=== PATIENT | female | born 1975 | race African-American/Black ===

== ENCOUNTER 2017-01-12 18:49 | Emergency (ER) | payer BC ==
[2017-01-12] MEDS ORDERED: ACETAMINOPHEN 325 MG TABLET PO ONE (19:06)
--- NOTE | 2017-01-12 19:06 | ER Document Report ---
ED Medical Screen (RME) - General Stated Complaint: HIGH BLOOD PRESSURE,HEADACHE Mode of Arrival: Ambulatory Information source: Patient Notes: c/o frontal headache that started yesterday. She states she had her BP checked at [facility] prior to coming and it was 146/97 and 141/95. At work earlier today it was also 143/106, HR 104. She has no prior history of HTN, does not take any blood pressure medication. Endorses associated blurred vision but denies dizziness, chest pain, SOB. I have greeted and performed a rapid initial assessment of this patient. A comprehensive ED assessment and evaluation of the patient, analysis of test results and completion of the medical decision making process will be conducted by additional ED providers. TRAVEL OUTSIDE OF THE [place] IN LAST 30 DAYS: No - Related Data Allergies/Adverse Reactions: No Known Allergies Allergy (Verified 04/20/14 08:04) Past Medical History - Past Medical History Cardiac Medical History: Reports: Hx Hypertension Pulmonary Medical History: Denies: Hx Tuberculosis Neurological Medical History: Reports: Hx Migraine Past Surgical History: Denies: Hx Pacemaker - Immunizations Immunizations up to date: Yes Hx Diphtheria, Pertussis, Tetanus Vaccination: Yes Physical Exam - Vital signs Vitals: Temp Pulse Resp BP Pulse Ox 97.5 F 92 16 137/87 H 99 01/12/17 18:56 01/12/17 18:56 01/12/17 18:56 01/12/17 18:56 01/12/17 18:56 Course - Vital Signs Vital signs: Temp Pulse Resp BP Pulse Ox 97.5 F 92 16 137/87 H 99 01/12/17 18:56 01/12/17 18:56 01/12/17 18:56 01/12/17 18:56 01/12/17 18:56
[2017-01-12 19:40] LABS: APPEARANCE,URINE SLIGHTLY-CLOUDY; BILIRUBIN,URINE NEGATIVE (NEGATIVE); GLUCOSE, URINE NEGATIVE (NEGATIVE); KETONES,URINE NEGATIVE (NEGATIVE); LEUKOCYTE ESTERASE,URINE TRACE (NEGATIVE); NITRITE,URINE NEGATIVE (NEGATIVE); PROTEIN,URINE NEGATIVE (NEGATIVE); URINE SPECIFIC GRAVITY 1.012; UROBILINOGEN,URINE NEGATIVE mg/dL (<2.0)
[2017-01-12] MEDS ORDERED: DIPHENHYDRAMINE HCL 25 MG CAPSULE PO ONE (21:30)
[2017-01-12] MEDS ORDERED: METOCLOPRAMIDE HCL 10 MG TABLET PO ONE (21:30)
--- NOTE | 2017-01-12 23:13 | ER Document Report ---
HPI - HPI Patient complains to provider of: headache high blood pressure Onset: Yesterday Onset/Duration: Persistent Quality of pain: Achy Severity: Severe Pain Level: 4 Context: Patient presents to the emergency department with complaints of headache high blood pressure. She reports she felt like it was elevated this morning. She did her errands and then took her bp at [facility]. She reports history of high blood pressure. She reports she is under no treatment at this time. She denies other symptoms like chest pain shortness of breath. She denies fever vomiting diarrhea. Associated Symptoms: None, Headache. denies: Nausea, Vomiting, Shortness of breath Exacerbated by: Denies Relieved by: Denies Similar symptoms previously: Yes Recently seen / treated by doctor: No - CARDIOVASCULAR Cardiovascular: DENIES: Chest pain - REPRODUCTIVE LMP: [id number] Reproductive: DENIES: : - DERM Skin Color: Normal Past Medical History - General Information source: Patient Last Menstrual Period: last month - Social History Smoking Status: Current Every Day Smoker Cigarette use (# per day): Yes - [id number] Chew tobacco use (# tins/day): No Frequency of alcohol use: None Drug Abuse: None Occupation: 2 jobs Lives with: Family Family History: Reviewed & Not Pertinent Patient has suicidal ideation: No Patient has homicidal ideation: No - Past Medical History Cardiac Medical History: Reports: Hx Hypertension Pulmonary Medical History: Denies: Hx Tuberculosis Neurological Medical History: Reports: Hx Migraine Renal/ Medical History: Denies: Hx Peritoneal Dialysis Surgical Hx: Negative Past Surgical History: Denies: Hx Pacemaker - Immunizations Immunizations up to date: Yes Hx Diphtheria, Pertussis, Tetanus Vaccination: Yes Vertical Provider Document - CONSTITUTIONAL Agree With Documented VS: Yes Exam Limitations: No Limitations General Appearance: WD/WN, No Apparent Distress - Nontoxic looking - INFECTION CONTROL TRAVEL OUTSIDE OF THE [place] IN LAST 30 DAYS: No - HEENT HEENT: Atraumatic, Normal ENT Exam, Normocephalic, PERRLA. negative: Conjuctival Injection, Pharyngeal Exudate, Pharyngeal Tenderness, Pharyngeal Erythema, Tympanic Membrane Red, Tympanic Membrane Bulging - NECK Neck: Normal Inspection, Supple. negative: Lymphadenopathy-Left, Lymphadenopathy-Right - RESPIRATORY Respiratory: Breath Sounds Normal, No Respiratory Distress, Chest Non-Tender O2 Sat by Pulse Oximetry: 98 - CARDIOVASCULAR Cardiovascular: Regular Rate, Regular Rhythm - GI/ABDOMEN Gastrointestinal: Abdomen Soft, Abdomen Non-Tender - BACK Back: Normal Inspection - MUSCULOSKELETAL/EXTREMETIES Musculoskeletal/Extremeties: MAEW, FROM, Non-Tender - NEURO Level of Consciousness: Awake, Alert, Appropriate Motor/Sensory: No Motor Deficit - DERM Integumentary: Warm, Dry, No Rash Course - Re-evaluation Re-evalutation: 01/12/17 Patient looks good. Patient reports she's had recent increased stress in her life. She works 2 jobs. Patient also reports that she was so stressed this morning she smoked a pack a cigarette within the morning. Patient denies chest pain shortness of breath. Patient was instructed on the importance of quitting smoking. Patient was also instructed on ways to control high blood pressure. She verbalized understanding. She was also instructed on the importance of follow-up with the family care provider for further evaluation and physical. 01/12/17 23:14 Patient reports her headache is almost gone. - Vital Signs Vital signs: Temp Pulse Resp BP Pulse Ox 98.1 F 86 15 114/71 98 01/12/17 22:34 01/12/17 22:34 01/12/17 22:34 01/12/17 22:34 01/12/17 22:34 - Laboratory Laboratory results interpreted by me: 01/12/17 19:10 Urine Blood SMALL H Ur Leukocyte Esterase TRACE H Discharge - Discharge Clinical Impression: Headache, elevated blood pressure reading Condition: Stable Disposition: HOME, SELF-CARE Instructions: Antinausea Medication ([facility]), Headache ([facility]), Use of Diphenhydramine, Reglan ([facility]), Family Physicians / Practices Additional Instructions: *You have been evaluated for headache, elevated blood pressure *Quit smoking *Take benadryl as indicated for LOPEZ *Monitor your blood pressure follow-up with primary care provider *Follow up with a primary care provider within one week *Return to ED for worsening condition, changes, needs Forms: Elevated Blood Pressure, Smoking Cessation Education, Return to Work
[2017-01-12 23:39] VITALS: BP 127/77
== END 2017-01-12 23:38 | disposition home or self-care (01) ==
LOC: ER 18:49
DX: I10 Essential (primary) hypertension (principal); R51 Headache; F17.210 Nicotine dependence, cigarettes, uncomplicated; F43.9 Reaction to severe stress, unspecified
CPT/HCPCS: 81001; 99284

== ENCOUNTER 2018-03-28 17:05 | Emergency (ER) | payer BC ==
[2018-03-28] MEDS ORDERED: IPRATROPIUM/ALBUTEROL 0.5-2.5 MG/3 ML AMPUL NEB ONE (17:33)
--- NOTE | 2018-03-28 17:36 | ER Document Report ---
ED Respiratory Problem - General Chief Complaint: Chest Congestion Stated Complaint: COUGH Time Seen by Provider: 03/28/18 17:23 Mode of Arrival: Ambulatory Information source: Patient TRAVEL OUTSIDE OF THE [place] IN LAST 30 DAYS: No - HPI Patient complains to provider of: Cough Notes: Patient is here with complaints of cough for approximately 1 week now. She states that she had a fever through Monday but does not believe she has had a fever since that time. She is a smoker. She denies any chronic lung conditions. States that now she has some pain in her chest only if she coughs. She denies any shortness of breath. She denies any recent long trips or surgeries, leg pain or swelling, hormone use, history of DVT or PE, cancer. Patient is a smoker. She also states that when she woke up this morning she noticed that her left hip was somewhat sore. She denies any traumatic injury or fall. She denies any numbness, tingling, weakness. Also complains of a "knot" in her left side that she noticed this morning as well. No redness or swelling. Nothing seems to make her symptoms better. Her pain in her chest as well as the "knot" in her abdomen is worse if she coughs. No other complaints at this time. - Related Data Allergies/Adverse Reactions: No Known Allergies Allergy (Verified 03/28/18 17:39) Past Medical History - Social History Smoking Status: Current Every Day Smoker Family History: Reviewed & Not Pertinent - Past Medical History Cardiac Medical History: Reports: Hx Hypertension Pulmonary Medical History: Denies: Hx Tuberculosis Neurological Medical History: Reports: Hx Migraine Renal/ Medical History: Denies: Hx Peritoneal Dialysis Past Surgical History: Denies: Hx Pacemaker - Immunizations Immunizations up to date: Yes Hx Diphtheria, Pertussis, Tetanus Vaccination: Yes Review of Systems - Review of Systems -: Yes All other systems reviewed and negative Physical Exam - Vital signs Vitals: Temp Pulse Resp BP Pulse Ox 97.7 F 87 20 147/82 H 99 03/28/18 17:13 03/28/18 17:13 03/28/18 17:13 03/28/18 17:13 03/28/18 17:13 - Notes Notes: GENERAL: alert, cooperative, nontoxic, no distress. HEAD: normocephalic, atraumatic EYES: conjunctiva pink without discharge, no external redness or swelling. EARS: no external swelling, no external redness, no mastoid redness, swelling, tenderness. Ear canals are clear without swelling or drainage. TMs pearly zamudio , no redness, no bulging, normal landmarks, no perforation. NOSE: atraumatic, no external swelling. clear rhinorrhea noted. MOUTH/THROAT: mucous membranes moist and pink, posterior pharynx without erythema, swelling, exudate. No trismus or drooling. NECK: soft, supple, full range of motion, no meningismus. CHEST: no distress, lungs clear and equal throughout. Scattered wheezes expiratory throughout. No crackles. Fair air movement. CARDIAC: regular rate and rhythm, no murmur, normal capillary refill, normal pulses. No peripheral edema noted. BACK: full range of motion, no CVA tenderness. ABDO: Obese abdomen. Soft and nontender. I am unable to palpate any mass in the area where she feels her "knot". No redness or signs of abscess. No rebound tenderness or guarding. EXTREMITIES: full range of motion of all extremities. No redness, no swelling. Minimal tenderness to palpation of the left iliac crest. Full range of motion of the hip. No joint swelling. Normal pulse and sensation distally. NEURO: alert and oriented A&O3, no focal deficits, full range of motion of all extremities. PYSCH: appropriate mood, affect. Patient is cooperative. SKIN: pink, warm, dry, no rash. Course - Re-evaluation Re-evalutation: 03/28/18 18:34 Patient is nontoxic appearing with stable vitals. She is here with complaints of cough as well as some left hip pain. She is a smoker. She had fever at the onset of illness that has since resolved. She is afebrile here and is not hypoxic or tachypneic. She was noted to have some expiratory wheezes on exam. She was given breathing treatments which improved her breath sounds. Chest x- ray shows no acute abnormality per the radiologist. Patient some mild tenderness to palpation at the left iliac crest. No injury. The left hip joint itself is unremarkable. Patient will be discharged home with a prescription for prednisone, albuterol inhaler with spacer, Naprosyn. Follow- up with her doctor if not better in 1 week, sooner for worsening pain, fever, numbness, tingling, weakness, difficulty breathing, or for any further concerns. The patient is noted to have elevated blood pressure during today's emergency department visit. The patient was informed of this finding. The patient was instructed that this may be related to pre-hypertension and requires further evaluation with a primary care provider. The patient has no hypertensive symptoms at this time. The patient's emergency department workup and current diagnosis were explained to the patient and or family. Follow-up instructions were provided. Medications if prescribed were discussed. Instructions for when to return to the emergency department including specific worrisome symptoms were discussed with the patient and/or family. - Vital Signs Vital signs: Temp Pulse Resp BP Pulse Ox 97.7 F 87 20 147/82 H 99 03/28/18 17:13 03/28/18 17:13 03/28/18 17:13 03/28/18 17:13 03/28/18 17:13 - Diagnostic Test Radiology reviewed: Image reviewed, Reports reviewed - Negative chest x-ray Discharge - Discharge Clinical Impression: Bronchitis, Left hip pain Condition: Stable Disposition: HOME, SELF-CARE Instructions: Bronchitis ([facility]) Additional Instructions: Take medication as prescribed. Follow-up with your doctor at the next available appointment. Follow-up sooner for worsening symptoms, high fever, persistent vomiting, difficulty breathing, redness or swelling to the left hip, or for any further concerns. Your blood pressure was elevated during today's visit. Have this rechecked with your doctor. Prescriptions: Albuterol Sulfate [Proair HFA Inhalation Aerosol 8.5 gm MDI] 2 puff IH Q4H PRN # 1 mdi PRN Reason: Inhaler, Assist Devices [Space Chamber Plus] 1 each MC PRN PRN #1 spacer PRN Reason: Naproxen [Naprosyn] 500 mg PO BID #20 tablet Prednisone [Deltasone 20 mg Tablet] 3 tab PO DAILY 5 Days tablet Forms: Elevated Blood Pressure, Smoking Cessation Education Referrals: [facility] [Provider Group] - Follow up as needed
--- NOTE | 2018-03-28 17:47 | RADIOLOGY REPORT (SQ) ---
EXAM DESCRIPTION: CHEST 2 VIEWS COMPLETED DATE/TIME: 03/28/2018 5:40 pm REASON FOR STUDY: cough, pain with cough COMPARISON: 04/13/2012. EXAM PARAMETERS: NUMBER OF VIEWS: two views TECHNIQUE: Digital Frontal and Lateral radiographic views of the chest acquired. RADIATION DOSE: NA LIMITATIONS: none FINDINGS: LUNGS AND PLEURA: No opacities, masses or pneumothorax. No pleural effusion. MEDIASTINUM AND HILAR STRUCTURES: No masses or contour abnormalities. HEART AND VASCULAR STRUCTURES: Heart normal size. No evidence for failure. BONES: No acute findings. HARDWARE: None in the chest. OTHER: No other significant finding. IMPRESSION: NO ACUTE RADIOGRAPHIC FINDING IN THE CHEST. TECHNICAL DOCUMENTATION: JOB ID: [id number] [email or web address]- All Rights Reserved Reading location - IP/workstation name: [email or web address]
[2018-03-28 19:11] VITALS: BP 119/74
== END 2018-03-28 19:14 | disposition home or self-care (01) ==
LOC: ER 17:05
DX: J40 Bronchitis, not specified as acute or chronic (principal); M25.552 Pain in left hip; R09.89 Other specified symptoms and signs involving the circulatory and respiratory systems; R05 Cough; R50.9 Fever, unspecified; F17.200 Nicotine dependence, unspecified, uncomplicated; I10 Essential (primary) hypertension
CPT/HCPCS: 94640; 99283; 71046; J7620

== ENCOUNTER → 2020-06-22 | Outpatient (CLI) | payer BC ==
--- NOTE | 2020-06-23 08:56 | WOMENS IMAGING REPORT ---
EXAM DESCRIPTION: BILAT SCREENING MAMMO W/CAD IMAGES COMPLETED DATE/TIME: 06/22/2020 4:08 pm REASON FOR STUDY: Z12.31 ENCNTR SCREEN MAMMOGRAM FOR MALIGNANT NEOPLASM OF BREAST Z12.31 ENCNTR SCR EEN MAMMOGRAM FOR MALIGNANT NEOPLASM OF LISA COMPARISON: None. EXAM PARAMETERS: Standard craniocaudal and mediolateral oblique views of each breast recorded using digital acquisition. Read with the assistance of CAD. .[facility] - [employer] Director Sales And Marketing Version 9.2 LIMITATIONS: None. FINDINGS: No suspicious masses, suspicious calcifications or architectural distortion. No areas of c oncern. IMPRESSION: NEGATIVE MAMMOGRAM. BIRADS 1 BREAST DENSITY: b. There are scattered areas of fibroglandular density. BIRAD: ASSESSMENT: 1 NEGATIVE RECOMMENDATION: ROUTINE SCREENING COMMENT: The patient has been notified of the results by letter per MQSA requirements. Additional no tification policies are in place for contacting patient with suspicious or incomplete findings. Quality ID #[id number]: The [employer] recommends an annual screening mammogram for women aged 40 years or over. This facility utilizes a reminder system to ensure that all patients receive reminder letters, and/or direct phone calls for appointments. This includes reminders for routine scr eening mammograms, diagnostic mammograms, or other Breast Imaging Interventions when appropriate. Th is patient will be placed in the appropriate reminder system. TECHNICAL DOCUMENTATION: FINDING NUMBER: (1) ASSESSMENT: (1) JOB ID: [id number] [employer]- All Rights Reserved Reading location - IP/workstation name: [email or web address]
== END ==
LOC: WI 15:35
PROVIDERS: ATTEND Obstetrics & Gynecology Gynecology
DX: Z12.31 Encounter for screening mammogram for malignant neoplasm of breast (principal)
CPT/HCPCS: 77067